=== PATIENT | male | born 1980 | race Caucasian/White ===

== ENCOUNTER 2018-12-30 08:47 | Day surgery (SDC) | payer MEDICAID ==
[2018-12-26 11:14] LABS: CLARITY,URINE CLOUDY (Clear); COLOR,URINE YELLOW (Yellow); GLUCOSE, URINE NEGATIVE (Neg); KETONES,URINE NEGATIVE (Neg); LEUKOCYTE ESTERASE ,URINE NEGATIVE (Neg); NITRITES, URINE NEGATIVE (Neg); OCCULT BLOOD,URINE NEGATIVE (Neg); PH,URINE 8.5 (4.8-8.0); PROTEIN,URINE NEGATIVE (Neg); UROBILINOGEN,URINE 0.2 E.U/dL (0.2-1.0)
[2018-12-26 11:18] LABS: BASOPHILS % (AUTO) 0.5 % (0-1); EOSINOPHILS # (AUTO) 0.4 X10'3 (0-0.9); EOSINOPHILS % (AUTO) 4.8 % (0-6); LYMPHOCYTES # (AUTO) 1.5 X10'3 (1.1-4.8); LYMPHOCYTES % (AUTO) 18.6 % (21-51); MEAN CORPUSCULAR HEMOGLOBIN 33.9 PG (27.0-31.0); MEAN CORPUSCULAR HGB CONC 34.5 g/dL (33.0-36.5); MEAN CORPUSCULAR VOLUME 98.2 FL (78-98); MEAN PLATELET VOLUME 8.4 FL (7.4-10.4); MONOCYTES # (AUTO) 0.6 X10'3 (0-0.9); MONOCYTES % (AUTO) 7.8 % (2-12); NEUTROPHILS # (AUTO) 5.5 X10'3 (1.8-7.7); NEUTROPHILS % (AUTO) 68.3 % (42-75); PRE OP HEMOGLOBIN 16.6 g/dL (14.0-17.9); PRE OP PLATELET COUNT 172 X10'3 (140-440); RED BLOOD COUNT 4.89 X10'6 (4.70-6.10); RED CELL DISTRIBUTION WIDTH 13.3 % (11.5-14.5)
[2018-12-26 11:19] LABS: UA COLLECTION TYPE CLN CATCH MIDSTREAM
[2018-12-26 11:20] LABS: SQUAMOUS EPITHELIAL CELL,UR NONE SEEN /LPF (FEW)
[2018-12-26 11:22] LABS: AMORPHOUS PHOSPHATES 3+; BACTERIA,URINE FEW /HPF (Neg); RBC,URINE NONE SEEN /HPF (0-2); WBC,URINE NONE SEEN /HPF (0-4)
[2018-12-26 11:27] LABS: ALBUMIN 4.3 G/DL (3.4-5.0); ALBUMIN/GLOBULIN RATIO 1.3 (1.1-1.5); ALKALINE PHOSPHATASE 74 IU/L (46-116); BLOOD UREA NITROGEN 15 MG/DL (7-18); BUN/CREATININE RATIO 15.2 (5.4-32.0); CALCIUM 9.1 MG/DL (8.5-10.1); CHLORIDE 104 MMOL/L (99-107); CREATININE 0.99 MG/DL (0.60-1.10); PRE OP ALT 35 U/L (30-65); PRE OP ANION GAP 7 (8-16); PRE OP AST 16 U/L (10-37); PRE OP BILIRUB, TOTAL 0.4 MG/DL (0.0-1.0); PRE OP GLUCOSE 98 MG/DL (70-104); PRE OP POTASSIUM 5.4 MMOL/L (3.4-5.1); PRE OP SODIUM 142 MMOL/L (135-145); TOTAL CARBON DIOXIDE 31.2 MMOL/L (24-32); TOTAL PROTEIN 7.7 G/DL (6.4-8.2); eGFR 86 ML/MIN
[~2018-12-30] VITALS: Ht 180.3 cm; Wt 96.0 kg
[2018-12-30] VITALS (26 sets, daily range): BP systolic 110–168; BP diastolic 69–100
[~2018-12-30 08:47] MED LIST: ALBU18HF2 PO; BUDE10.2 PO; EPIN0.3A3 SQ; LORA10TA7 PO; albuterol 2.5 MG/3 ML nebule NEB ONE; cefazolin/dext.iso 2gm/50ml 50 ML IV ONE; famotidine 20mg tablet PO ONE; ringers solution, lacted 1,000 ML IV SCH
[2018-12-30] MEDS ORDERED: ringers solution, lacted 1,000 ML IV SCH (11:40)
[2018-12-30] MEDS ORDERED: morphine 4 MG/ML inj SYRINge IV PRN ×2 (11:40)
[2018-12-30] MEDS ORDERED: proCHLORperazine 10 MG/2 ml inj IV PRN (11:40)
[2018-12-30] MEDS ORDERED: meperidine/PF 25mg/ml syringe IV PRN ×2 (11:40)
[2018-12-30] MEDS ORDERED: ondansetron/PF 4mg/2ml inj IV PRN ×2 (11:40→15:55)
[2018-12-30] MEDS ORDERED: methylene blue (5mg/ml) 50mg/10ml ampul IV ONE (12:23)
[2018-12-30] MEDS ORDERED: BUPIVACAINE liposomal/PF 13.3 MG/ML vial IM ONE (12:23)
[2018-12-30] MEDS ORDERED: BUPIVAcaine/PF 2.5 mg/ml (0.25%) 30ml vial ONE (12:23)
[2018-12-30] MEDS ORDERED: sevoflurane 250ml liquid IH ONE (12:32)
[2018-12-30] MEDS ORDERED: fentaNYL/PF 50MCG/1 ML 2ML syringe ONE ×2 (12:37→13:14)
[2018-12-30] MEDS ORDERED: midazolam 2 mg/2 ml injection ONE (12:38)
[2018-12-30] MEDS ORDERED: propofol inj 20 ML IV ONE (12:40)
--- NOTE | 2018-12-30 13:35 | NUR ---
ADMITTED TO PACU FROM OR ACCOMPANIED BY ANESTHESIA. INTIAL PHYSICAL ASSESSMENT DONE AND RECORDED. AWAKE AND RESPONSE ON ARRIVE YO PACU, REPORT RECEIVED FROM ANESTHESIA.
[2018-12-30] MEDS: meperidine/PF 25mg/ml syringe IV PRN ×2 (14:19→15:26)
--- NOTE | 2018-12-30 15:35 | NUR ---
PT UNCOMFORTABLE, UNABLE TO VOID. BLADDER PALPABLE, CALL TO DR BROTHERS ORDERS RECEIVED. CATHED FOR 450CC CLEAR YELLOW URINE. VERY ANXIOUS, C/O RECTAL PAIN MEDICATED WITH DEMEROL ORDERED.
--- NOTE | 2018-12-30 16:00 | NUR ---
PACU DISCHARGE CRITERIA MET, REPORT GIVEN TO FLOOR. DENIES PAIN OR DISCOMFORT, TRANSFERRED TO ROOM IN STABLE GOOD CONDITION. MEDICATED FOR PAIN WITH POOR RESULTS ATTEMPTS TO COMFORT, ALEVE ANXIETY, UNSUCCESSFUL. UPDATE TO FLOOR RN
--- NOTE | 2018-12-30 16:20 | NUR ---
Report received from MARTIN Shields in recovery. patient brought up to the floor in anxious state, ativan given. post op vitals started. will continue to monitor.
[2018-12-30] MEDS: LORazepam 2 mg/ml vial IV PRN (16:33)
[2018-12-30] MEDS: HYDROcodone/acetaminophen 5mg/325mg tablet PO PRN ×2 (18:00→22:05)
[2018-12-30] MEDS ORDERED: albuterol 2.5 MG/3 ML nebule NEB PRN (18:30)
[2018-12-30] MEDS ORDERED: epiNEPHrine 1 mg/ml inj SQ PRN (18:30)
--- NOTE | 2018-12-30 18:33 | NUR ---
Problems reprioritized. Patient report given, questions answered & plan of care reviewed with MARTIN Liu.
--- NOTE | 2018-12-30 18:35 | NUR ---
Patient in room [facility]. I have received report from MARTIN Lee and had the opportunity to ask questions and assume patient care.
[2018-12-30] MEDS: budesonide 0.5mg/2ml UD nebule IH SCH (20:00)
[2018-12-30] MEDS: albuterol 2.5 MG/3 ML nebule NEB SCH (20:00)
[2018-12-31] VITALS: BP 138/94
[2018-12-31] MEDS: albuterol 2.5 MG/3 ML nebule NEB SCH ×2 (02:00→09:27)
[2018-12-31] MEDS: HYDROcodone/acetaminophen 5mg/325mg tablet PO PRN ×3 (02:06→10:50)
[2018-12-31 04:00] VITALS: BP 136/79
--- NOTE | 2018-12-31 06:13 | NUR ---
Problems reprioritized. Patient report given, questions answered & plan of care reviewed with MARTIN Chavez.
--- NOTE | 2018-12-31 06:30 | NUR ---
Patient in room [facility]. I have received report from MARTIN Liu and had the opportunity to ask questions and assume patient care.
[2018-12-31] MEDS: LORazepam 2 mg/ml vial IV PRN (06:57)
[2018-12-31 07:00] VITALS: BP 119/88
[2018-12-31] MEDS ORDERED: loratadine 10mg tablet PO SCH (08:00)
[2018-12-31] MEDS: budesonide 0.5mg/2ml UD nebule IH SCH (09:57)
--- NOTE | 2018-12-31 09:59 | NUR ---
patient refused svn tx Addendum: 12/31/18 at 0959 by Rocío Bruce RT Amended: Links added.
--- NOTE | 2018-12-31 10:00 | NUR ---
pt constantly complaining of discomfort at alvarado site. Continuing to remind pt that he must wait for MD to see him before we can d/c it.
--- NOTE | 2018-12-31 12:07 | NUR ---
Dr. Dan at bedside. Stated ok to d/c alvarado and discharge pt to home. MD stated no need to wait for pt to urinate before d/c as it "could take awhile".
--- NOTE | 2018-12-31 13:06 | NUR ---
RN placed discharge orders per MD request. Pertinent d/c instructions added per MD. Reviewed instructions with pt and pts mother and they verbalized understanding. Written Rx provided for pt per MD for pain management. IV removed. Pt escorted to car via wheelchair for d/c.
== END 2018-12-31 13:05 | disposition home or self-care (01) ==
LOC: PAS 08:47 → SUR 3N 16:29 → PAS 12-31 13:05
PROVIDERS: ATTEND Surgery
DX: K60.1 Chronic anal fissure (principal); K64.4 Residual hemorrhoidal skin tags; K64.8 Other hemorrhoids; F17.210 Nicotine dependence, cigarettes, uncomplicated; Z98.890 Other specified postprocedural states; J45.909 Unspecified asthma, uncomplicated; K21.9 Gastro-esophageal reflux disease without esophagitis; Z91.013 Allergy to seafood; Z79.899 Other long term (current) drug therapy
CPT/HCPCS: 36415; 46257; 80053; 81001; 82948; 85025; 94760; A6224; C9290; J2060; J2175; J2250; J2704; J3010; J3490; J7120; Q9968; A4215; A4618; A6449; A7000; G0378